=== PATIENT | female | born 1945 | race Caucasian/White ===

== ENCOUNTER 2022-09-23 09:47 | Outpatient (CLI) | payer MEDICARE, BC | END 2022-09-23 09:48 | disposition home or self-care (01) | LOC: CSHMAMMO 09:47 | PROVIDERS: ATTEND Family Medicine | DX: Z12.31 Encounter for screening mammogram for malignant neoplasm of breast (principal) | CPT/HCPCS: 77063; 77067 ==

== ENCOUNTER 2023-10-09 10:47 | Observation (INO) | payer BC, MEDICARE ==
[2023-10-09 11:34] LABS: #Basophils 0.1 10x3/uL (0.0-0.2); #Eosinphils 0.3 10x3/uL (0.0-0.5); #Monocytes 0.5 10x3/uL (0.0-1.1); #Neutrophils 4.9 10x3/uL (1.5-8.4); %Basophils 0.9 % (0.0-2.0); %Lymphocytes 28.3 % (18.0-47.0); %Monocytes 6.5 % (0.0-10.0); %Neutrophils 59.7 % (40.0-75.0); Hematocrit 44.3 % (34.9-44.5); Mean Corpuscular HGB CONC 33.9 g/dL (32.0-36.0); Mean Corpuscular Hemoglobin 30.4 pg (27.0-33.0); Mean Corpuscular Volume 89.9 fl (81.6-98.3); Mean Platelet Volume 10.7 fl (7.4-10.4); Platelet Count 215 10x3/uL (150-450); RBC Distribution Width 12.5 % (11.5-14.5); Red Blood Cell (RBC) Count 4.93 10x6/uL (3.90-5.03); White Blood Cell (WBC) Count 8.2 10x3/uL (3.5-10.5)
[2023-10-09 11:49] LABS: INR-International Normal Ratio 0.9
[2023-10-09 11:52] LABS: ALT (SGPT) 20 U/L (8-55); AST (SGOT) 15 U/L (5-34); Albumin 3.9 g/dL (3.4-4.8); Alkaline Phosphatase 132 U/L (40-110); Anion Gap 17 mmol/L (10-20); BUN (Urea Nitrogen) 22 mg/dL (9.8-20.1); Bilirubin, Total 0.5 mg/dL (0.2-1.2); Calc. Creatinine Clearance 0 mL/min (70-130); Calcium 9.4 mg/dL (7.8-10.44); Carbon Dioxide 19 mmol/L (23-31); Chloride 105 mmol/L (98-107); Estimated GFR 66; Globulin 2.5 g/dL (2.4-3.5); Glucose 381 mg/dL (83-110); Potassium 3.6 mmol/L (3.5-5.1); Protein, Total 6.4 g/dL (5.8-8.1); Sodium 137 mmol/L (136-145)
[2023-10-09 11:57] LABS: Troponin I 0.012 ng/mL (< 0.028)
[2023-10-09] MEDS ORDERED: Iopamidol 370 76% 100 ML VIAL ONE (14:01)
[2023-10-09 14:07] LABS: Bilirubin Neg (Negative); Blood, Urine Negative (Negative); Clarity Clear (Clear); Glucose, Urine (Dipstick) >=1000 mg/dL (Negative); Ketone, Urine Negative (Negative); Leukocyte Negative (Negative); Nitrite Negative (Negative); Protein, Urine (Dipstick) Negative (Neg-Trace); Urobilinogen Normal mg/dL (Less than 2)
[2023-10-09] MEDS ORDERED: hydrALAZINE 20 MG/ML VIAL SLOW IVP PRN (14:42)
[2023-10-09] MEDS ORDERED: Dextrose 50% Abboject 50 ML SYRINGE SLOW IVP PRN (14:44)
[2023-10-09] MEDS ORDERED: Glucagon 1 MG/ML KIT IM PRN (14:44)
[2023-10-09] MEDS ORDERED: Dextrose 5% in Water 1,000 ML IV PRN (14:44)
[2023-10-09 14:45] LABS: CAUTI Indications for Culture Pelvic or flank pain; RBC/HPF None Seen HPF (0-3); Squamous Epithelial 0-3 HPF (0-3); WBC/HPF 0-3 HPF (0-3)
[2023-10-09 14:46] LABS: Bacteria/HPF Rare-Few HPF (None Seen); Urine Culture Reflex No No
[2023-10-09 15:10] VITALS: BMI 26.6
[2023-10-09] MEDS ORDERED: Aspirin 81 mg Enteric Coated Tablet PO SCH (16:00)
[2023-10-09 16:47] LABS: Troponin I Less than 0.010 ng/mL (< 0.028)
[2023-10-09] MEDS ORDERED: hydrALAZINE 10 MG TAB PO SCH (17:00)
[2023-10-09] MEDS ORDERED: Amlodipine 5 MG TAB PO SCH (17:00)
[2023-10-09 18:33] LABS: Troponin I 0.014 ng/mL (< 0.028)
[2023-10-09] MEDS: Atorvastatin Calcium 40 MG TAB PO SCH (21:15)
[2023-10-09] MEDS: HumaLOG 300 UNITS/3 ML VIAL SC PRN (23:02)
[2023-10-10 06:00] LABS: Cardiac Risk 3.7 (Less than 4.5)
[2023-10-10] MEDS: HumaLOG 300 UNITS/3 ML VIAL SC PRN ×3 (06:42→17:17)
[2023-10-10] MEDS: Aspirin 81 mg Enteric Coated Tablet PO SCH (09:49)
[2023-10-10] MEDS: Enoxaparin 40 MG (0.4 mL) SYRINGE SC SCH (09:49)
[2023-10-10] MEDS: Amlodipine 5 MG TAB PO SCH (09:50)
[2023-10-10] MEDS ORDERED: Alogliptin 6.25 MG TAB PO SCH (10:00)
[2023-10-10 13:11] LABS: Hemoglobin A1c 11.2 % (4.0-6.0)
[2023-10-10] MEDS: Atorvastatin Calcium 40 MG TAB PO SCH (21:36)
[2023-10-11] MEDS: HumaLOG 300 UNITS/3 ML VIAL SC PRN (08:04)
[2023-10-11] MEDS ORDERED: Clopidogrel Bisulfate 75 MG TAB PO SCH (09:00)
[2023-10-11] MEDS ORDERED: Alogliptin 6.25 MG TAB PO SCH (09:00)
[2023-10-11] MEDS: Amlodipine 5 MG TAB PO SCH (10:03)
[2023-10-11] MEDS: Aspirin 81 mg Enteric Coated Tablet PO SCH (10:03)
[2023-10-11] MEDS: Enoxaparin 40 MG (0.4 mL) SYRINGE SC SCH (10:11)
[2023-10-11 12:41] VITALS: BP 139/63; TEMP 97.9
== END 2023-10-11 14:17 | disposition home or self-care (01) ==
LOC: CSHERS 10:47 → CSHTELE 13:23
PROVIDERS: ADMIT Internal Medicine; ATTEND Internal Medicine
DX: I63.9 Cerebral infarction, unspecified (principal); E11.9 Type 2 diabetes mellitus without complications; L12.0 Bullous pemphigoid; I07.1 Rheumatic tricuspid insufficiency; Z88.2 Allergy status to sulfonamides; Z79.899 Other long term (current) drug therapy
CPT/HCPCS: 36415; 36416; 70450; 70496; 70498; 70551; 71045; 80053; 80061; 81001; 83036; 83880; 84484; 85025; 85610; 85730; 93005; 93306; 96372; G0378; J1650; J1815; Q9967